=== PATIENT | male | born 1950 ===

== ENCOUNTER → 2018-11-18 10:31 | Outpatient (CLI) | payer MEDICARE, OTHER, SELFPAY ==
--- NOTE | 2018-11-18 15:08 | PM.TREADMILL ---
Cardiac Stress Test Report Referral & Results Date Patient Seen: 11/18/18 Requesting provider: Jairo Acosta Indication: Dyspnea upon exertion Rest ECG: . Unremarkable Procedure Note: Today following both written and verbal informed consent the patient was exercised according to a standard Alex protocol patient went for a total of 7 minutes 23 seconds achieving a maximum heart rate of 125 maximum systolic blood pressure of 180. This is approximately 10.1 METS. Exercise was terminated at this point because of fatigue. Patient was also given Cardiolite through a previously started Hep-Lock IV by the traffic engineering technician approximately 1 minute prior to the cessation of exercise No ST-T segment changes identified Normal heart rate and blood pressure response to exercise Functional aleyda impairment rated about 0 on the active scale No dysrhythmia Oxygen saturation remained at 93% throughout Impression: No evidence of ischemia. Average exercise capacity Please see perfusion imaging report as well Please note: Actual ECG tracings can be found in the PACS system.
--- NOTE | 2018-11-18 17:44 | DI.NM.S_ITS ---
DATE OF SERVICE: 11/18/2018 PROCEDURE PERFORMED: Exercise treadmill stress and rest myocardial perfusion imaging study with gating to assess ejection fraction and regional wall motion using a 1-day protocol. ORDERING PROVIDER: Jairo Acosta MD INDICATIONS: The patient is a 68-year-old male with exertional dyspnea. EXERCISE TREADMILL TESTING: The patient was able to exercise for a total of 7 minutes 23 seconds on a standard Alex protocol suggesting average exercise capacity with an SILVESTRE of 0%. He had a slightly blunted heart rate response, achieving a maximum heart rate of 125 bpm (82% of his predicted maximum) but a normal blood pressure response. He had no chest discomfort. His resting ECG shows some mild nonspecific T-wave abnormalities but there are no significant ST- segment shifts or arrhythmias with exercise. At 6 minutes 20 seconds of exercise, at heart rate of 113 bpm, 24.7 mCi of technetium-99 Myoview was injected and the patient was imaged 15 minutes later using a gated SPECT acquisition protocol. Previously, the patient had been injected with 13.6 mCi of technetium-99 Myoview and resting images obtained 30 minutes after that injection, again using a gated SPECT acquisition protocol. FINDINGS: 1. Raw Data: There is fairly good myocardial tracer uptake. The lung/heart ratio is normal at 0.27 with a normal TID ratio of 0.91. 2. Quantitative Gated SPECT: Post stress ejection fraction is estimated at 75% without any focal wall motion abnormality. Resting ejection fraction is estimated at 71% with an end-diastolic volume of 133 mL. 3. Myocardial Perfusion Imaging: Post stress supine images show a normal myocardial perfusion pattern without any perfusion defects, supported by normal perfusion imaging in the prone position. The resting images show an identical perfusion pattern without any areas of improvement. CONCLUSIONS: 1. Normal myocardial perfusion study with slightly reduced sensitivity because of a blunted heart rate response to exercise. 2. No evidence for myocardial ischemia or previous myocardial infarction. 3. Normal left ventricular systolic function without focal wall motion abnormality. 4. Average exercise capacity with a mildly blunted chronotropic response but no angina or ECG evidence of ischemia. Vargas Crawford - GENA/wendy/ab doc#: [id number]/job#: [id number] dd: 11/18/2018 16:46:00 dt: 11/18/2018 17:32:00 DICTATING MD/COPIES TO: Xander Cagle MD; Jairo Acosta MD COPIES MNE: JOSE ALBERTO CRUZ
== END ==
PROVIDERS: Visit Provider Student in an Organized Health Care Education/Training Program
DX: R06.09 Other forms of dyspnea (principal)
CPT/HCPCS: 78452; 93016; 93017; 93018; A9502

== ENCOUNTER → 2019-07-21 15:12 | Outpatient (CLI) | payer MEDICARE, OTHER, SELFPAY ==
--- NOTE | 2019-07-21 | DI.US.S_ITS ---
PROCEDURE: US THORACENTESIS INDICATIONS: Pleural effusion, not elsewhere classified TECHNIQUE: The indications, alternatives, benefits, risks, and complications of the procedure were explained to the patient. Written informed consent was obtained and placed in the chart. The chest was examined sonographically, and an appropriate site was chosen for thoracentesis. The skin was prepared and draped in the usual sterile fashion, and 1% lidocaine was infiltrated from the skin down through the pleural surface. A 19-gauge catheter-covered needle was then introduced into the pleural space, the catheter was advanced and the needle was withdrawn, and thereafter pleural fluid was aspirated. The catheter was then removed and a dressing was applied. COMPARISON: None. FINDINGS: Access site: Right hemithorax. Needle: One-Step centesis catheter with introducer needle. Fluid volume and description: 3800 cc serous fluid, clear area. Fluid sent for diagnostic testing: At the request of the ordering health care provider. Medications: 1% lidocaine for local anaesthesia. Complications: None; post-procedural chest radiograph is pending to assess for pneumothorax. IMPRESSION: Successful ultrasound-guided thoracentesis with fluid sample provided to the clinical laboratory for analysis at the request of the ordering health care provider. Dictated by: Pete Traore M.D. on 07/21/2019 at 17:31 Approved by: Pete Traore M.D. on 07/21/2019 at 17:32
--- NOTE | 2019-07-21 16:14 | DI.RAD.S_ITS ---
PROCEDURE: XR CHEST 1V INDICATIONS: POST THORACENTESIS TECHNIQUE: One view of the chest was acquired. COMPARISON: [facility], CR, CHEST 2 VIEW, 10/30/2011, 9:04. [facility], CR, CHEST 2 VIEW, 03/30/2011, 9:34. FINDINGS: Surgical changes and devices: None. Lungs and pleura: Lungs are clear. No pneumothorax bilaterally. Thoracentesis earlier today was right-sided. The amount of pleural fluid remaining on the right is small. Mediastinum: Mediastinal contours appear normal. Heart size is normal. Bones and chest wall: No suspicious bony lesions. Overlying soft tissues appear unremarkable. IMPRESSION: Residual small subpulmonic right pleural effusion, with no post thoracentesis pneumothorax. Dictated by: Pete Traore M.D. on 07/21/2019 at 16:30 Approved by: Pete Traore M.D. on 07/21/2019 at 16:33
[2019-07-21 16:47] LABS: LDH Body Fluid 241 U/L
[2019-07-21 16:48] LABS: Body Fluid Red Blood Cells 2364 /uL; Body Fluid Tot Nucleated Cells 1010 /uL
[2019-07-21 16:50] LABS: Body Fluid Appearance CLEAR; Body Fluid Clotted? NO CLOTS PRESENT; Body Fluid Color YELLOW
[2019-07-21 16:58] LABS: Total Protein Body Fluid 3.8 g/dL
[2019-07-21 17:25] LABS: Eosinophils Body Fluid 2 %; Mononuclear WBC Body Fluid 60 %; Polynuclear WBC Body Fluid 16 %
[2019-07-21 17:27] LABS: Other Cells Body Fluid 22 %
== END ==
PROVIDERS: PCP Student in an Organized Health Care Education/Training Program; Referring Provider Student in an Organized Health Care Education/Training Program; Visit Provider Student in an Organized Health Care Education/Training Program
DX: J90 Pleural effusion, not elsewhere classified (principal)
CPT/HCPCS: 32555; 71045; 83615; 84157; 87070; 87075; 87205; 89051